=== PATIENT | female | born 1965 | race Caucasian/White ===

== ENCOUNTER 2017-07-27 13:05 | Emergency (ER) | payer BC, MEDICARE ==
[~2017-07-27] VITALS: Ht 154.9 cm; Wt 86.2 kg
[~2017-07-27 13:05] MED LIST: ALBU90OI INH; AMLO5 PO; ASCO250CH PO; ASCO500 PO; BUPR150ER PO; CHOL10002 PO; CYAN500 PO; CYCL10 PO; Clobetasol Emol15 GM TP; FISH1000 PO; HYDACE5 PO; HYDCHL12.5 PO; HYDR1TAB94 PO; LAVAP17G PO; LIDO5TP TOP; LISI20 PO; LORPSEER12 PO; MAGIC MOUTH WASH; OPANA ER10 MG PO; PARO10 PO; PAROEX473 ML; PENNSAID112 GM TP; Phentermine HCl30 MG PO; TETR250 PO; TOPI25 PO; TRIA80TC TOP; Toprol Xl50 MG PO; VENL150ER PO; VENL75ER PO; Ventolin Soln3 ML INH; [UNRECOGNIZED DRUG - OTHER]
[2017-07-27 13:54] LABS: BASOPHILS ABSOLUTE AUTO 0.05 K/mm3 (0.00-0.23); BASOPHILS PERCENT AUTO 1 % (0-2); EOSINOPHILS ABSOLUTE AUTO 0.19 K/mm3 (0.00-0.68); EOSINOPHILS PERCENT AUTO 2 % (0-6); Hematocrit 41.3 % (33.0-51.0); Hemoglobin 13.3 g/dL (11.5-16.0); IMMATURE GRAN ABSOLUTE AUTO 0.04 K/mm3 (0.00-0.10); IMMATURE GRAN PERCENT AUTO 0 % (0-1); LYMPHOCYTES ABSOLUTE AUTO 3.17 K/mm3 (0.84-5.20); LYMPHOCYTES PERCENT AUTO 30 % (21-46); MONOCYTES ABSOLUTE AUTO 0.52 K/mm3 (0.16-1.47); MONOCYTES PERCENT AUTO 5 % (4-13); Mean Corpuscular HGB 28.1 pg (26.0-34.0); Mean Corpuscular HGB Conc 32.2 g/dL (31.5-36.5); Mean Corpuscular Volume 87 fL (80-100); Mean Platelet Volume 10.1 fL (9.1-12.4); NEUTROPHILS PERCENT AUTO 62 % (41-73); Platelet Count 307 K/mm3 (150-400); RDW Coefficient Variation 13.4 % (11.7-14.2); RDW Standard Deviation 42.8 fL (35.1-46.3); Red Blood Cell Count 4.74 M/mm3 (3.80-5.20); White Blood Cell Count 10.47 K/mm3 (4.00-11.30)
[2017-07-27] MEDS ORDERED: METO50ER PO (13:59)
[2017-07-27] MEDS ORDERED: Zestril40 MG (14:00)
[2017-07-27] MEDS ORDERED: Omeprazole20 M1 (14:04)
[2017-07-27 14:11] LABS: Albumin, Blood 3.1 g/dL (3.4-5.0); Albumin/Globulin Ratio 0.7 (0.8-1.8); Bilirubin, Total 0.2 mg/dL (0.1-1.0); Bun/Creatinine Ratio 17.6 (12.0-20.0); Creatinine, Blood 1.08 mg/dL (0.40-1.00); Globulin, Blood 4.4 g/dL (2.2-4.0); Total Protein, Blood 7.5 g/dL (6.4-8.2)
[2017-07-27] MEDS ORDERED: Zofran8 MG PO (16:25)
== END 2017-07-27 17:26 | disposition home or self-care (01) ==
LOC: ER 13:05
PROVIDERS: Emergency Medicine
DX: R11.2 Nausea with vomiting, unspecified (principal); E86.0 Dehydration; Z88.8 Allergy status to other drugs, medicaments and biological substances; Z88.5 Allergy status to narcotic agent; Z88.1 Allergy status to other antibiotic agents; Z79.899 Other long term (current) drug therapy; E11.9 Type 2 diabetes mellitus without complications; I10 Essential (primary) hypertension; Z87.891 Personal history of nicotine dependence
CPT/HCPCS: 36415; 80053; 83690; 85025; 93005; 93010; 96361; 96374; 96375; 96376; 99284; J1170; J2405; J7030

== ENCOUNTER → 2018-07-02 | Outpatient (CLI) | payer BC, MEDICARE ==
[~2018-07-02] MED LIST changes: +METO50ER PO; +Omeprazole20 M1; +Zestril40 MG; +Zofran8 MG PO
[2018-07-02 17:28] LABS: U Opiates Screen DETECTED
[2018-07-02 17:29] LABS: U Amphetamine Screen Not Detected; U Barbituate Screen Not Detected; U Benzodiazapine Screen Not Detected; U Buprenorphine Screen Not Detected; U Cannabinoids Screen Not Detected; U Cocaine Screen Not Detected; U Methadone Screen Not Detected; U Methamphetamine Screen Not Detected; U Oxycodone Screen DETECTED; U Phencyclidine Screen Not Detected; U Propoxyphene Screen Not Detected
== END ==
LOC: LAB SHORT 08:47 → LAB 08:47
PROVIDERS: Internal Medicine
DX: M54.16 Radiculopathy, lumbar region (principal)
CPT/HCPCS: G0480

== ENCOUNTER 2019-02-05 17:56 | Emergency (ER) | payer BC, MEDICARE ==
[~2019-02-05] VITALS: Ht 154.9 cm; Wt 79.4 kg
[2019-02-05 18:40] LABS: Calcium, Ionized (POC) 1.21 mmol/L (1.10-1.46); Chloride (POC) 111 mmol/L (98-108); Creatinine (POC) 1.7 mg/dL (0.6-1.0); Glucose (ISTAT POC) 136 mg/dL (70-99); Hemoglobin (POC) 11.2 g/dL (12.0-16.0); Sodium (POC) 141 mmol/L (135-148); Total CO2 (POC) 18 mmol/L (21-32)
[2019-02-05 18:52] LABS: BASOPHILS ABSOLUTE AUTO 0.04 K/mm3 (0.00-0.23); BASOPHILS PERCENT AUTO 0 % (0-2); EOSINOPHILS ABSOLUTE AUTO 0.21 K/mm3 (0.00-0.68); EOSINOPHILS PERCENT AUTO 2 % (0-6); Hematocrit 36.3 % (33.0-51.0); Hemoglobin 11.5 g/dL (11.5-16.0); IMMATURE GRAN ABSOLUTE AUTO 0.04 K/mm3 (0.00-0.10); IMMATURE GRAN PERCENT AUTO 0 % (0-1); LYMPHOCYTES ABSOLUTE AUTO 3.67 K/mm3 (0.84-5.20); LYMPHOCYTES PERCENT AUTO 40 % (21-46); MONOCYTES ABSOLUTE AUTO 0.59 K/mm3 (0.16-1.47); MONOCYTES PERCENT AUTO 7 % (4-13); Mean Corpuscular HGB 28.8 pg (26.0-34.0); Mean Corpuscular HGB Conc 31.7 g/dL (31.5-36.5); Mean Corpuscular Volume 91 fL (80-100); Mean Platelet Volume 10.4 fL (9.1-12.4); NEUTROPHILS ABSOLUTE AUTO 4.57 K/mm3 (1.96-9.15); NEUTROPHILS PERCENT AUTO 50 % (41-73); Platelet Count 294 K/mm3 (150-400); RDW Coefficient Variation 13.4 % (11.7-14.2); RDW Standard Deviation 44.6 fL (35.1-46.3); Red Blood Cell Count 3.99 M/mm3 (3.80-5.20); White Blood Cell Count 9.12 K/mm3 (4.00-11.30)
[2019-02-05 19:07] LABS: Alanine Aminotransfer (ALT/SGP 28 U/L (12-78); Albumin, Blood 3.6 g/dL (3.4-5.0); Albumin/Globulin Ratio 0.9 (0.8-1.8); Alk Phos 67 U/L (50-136); Anion Gap 7 mmol/L (6-16); Aspartate Aminotrans (AST/SGOT 20 U/L (12-37); Bilirubin, Total <0.1 mg/dL (0.1-1.0); Blood Urea Nitrogen 30 mg/dL (8-24); Bun/Creatinine Ratio 20.1 (12.0-20.0); CO2, Blood 17 mmol/L (21-32); Calcium, Blood 9.3 mg/dL (8.5-10.1); Chloride, Blood 114 mmol/L (98-108); Creatinine, Blood 1.49 mg/dL (0.40-1.00); Globulin, Blood 3.9 g/dL (2.2-4.0); Glomerular Filtration Rate 38 (60-); Glucose, Blood 134 mg/dL (70-99); Potassium, Blood 5.1 mmol/L (3.5-5.5); Sodium, Blood 138 mmol/L (136-145); Total Protein, Blood 7.5 g/dL (6.4-8.2)
[2019-02-05 21:49] LABS: Source, Urine Clean Catch
[2019-02-05 21:53] LABS: Appearance, Urine Clear (Clear); Bilirubin, Urine Neg (Neg); Blood, Urine Neg (Neg); Color, Urine Yellow (P-Yellow); Glucose Qualitative, Urine Neg (Neg); Ketones, Urine Neg (Neg); Leukocyte Esterase, Urine Neg (Neg); Nitrite, Urine Neg (Neg); Protein, Urine Neg (Neg); Specific Gravity, Urine 1.025 (1.003-1.022); Urobilinogen, Urine NORM (Normal)
== END 2019-02-05 23:54 | disposition home or self-care (01) ==
LOC: ER 17:56
PROVIDERS: Emergency Medicine
DX: N17.9 Acute kidney failure, unspecified (principal); E86.0 Dehydration; R11.2 Nausea with vomiting, unspecified; E11.9 Type 2 diabetes mellitus without complications; I10 Essential (primary) hypertension; Z87.891 Personal history of nicotine dependence; Z91.048 Other nonmedicinal substance allergy status; Z88.1 Allergy status to other antibiotic agents; Z88.5 Allergy status to narcotic agent; Z88.8 Allergy status to other drugs, medicaments and biological substances; Z79.899 Other long term (current) drug therapy; Z79.891 Long term (current) use of opiate analgesic
CPT/HCPCS: 36415; 80047; 80053; 81003; 83690; 85014; 85025; 93005; 93010; 96360; 99284-25; J7030

== ENCOUNTER 2020-05-05 13:19 | Day surgery (SDC) | payer BC, MEDICARE ==
[~2020-05-05] VITALS: Ht 154.9 cm; Wt 70.3 kg
[~2020-05-05 13:19] MED LIST changes: +Dyazide 37.5-21 EACH PO; +MORP30ER PO; +PRAV20 PO
[2020-05-05] MEDS ORDERED: METFORMIN500 MG/51 (13:42)
[2020-05-05] MEDS ORDERED: AMLO5 (13:43)
[2020-05-05] MEDS ORDERED: CALCIUM CIT 311 EACH (13:44)
[2020-05-05] MEDS ORDERED: DOCU100 (13:44)
[2020-05-05] MEDS ORDERED: VENL25 (13:45)
== END 2020-05-05 15:53 | disposition home or self-care (01) ==
LOC: ORSCSDS 13:19
PROVIDERS: Internal Medicine Gastroenterology
PROC: 0DB78ZX Excision of Stomach, Pylorus, Via Natural or Artificial Opening Endoscopic, Diagnostic (ICD-10-PCS; principal; 2020-05-05 14:45)
PROC: 0D778ZZ Dilation of Stomach, Pylorus, Via Natural or Artificial Opening Endoscopic (ICD-10-PCS; principal; 2020-05-05 14:45)
PROC: 0DBP8ZX Excision of Rectum, Via Natural or Artificial Opening Endoscopic, Diagnostic (ICD-10-PCS; principal; 2020-05-05 14:45)
DX: K92.1 Melena (principal); R11.2 Nausea with vomiting, unspecified; R63.4 Abnormal weight loss; K31.89 Other diseases of stomach and duodenum; Z86.010 Personal history of colon polyps; K44.9 Diaphragmatic hernia without obstruction or gangrene; K31.1 Adult hypertrophic pyloric stenosis; K64.8 Other hemorrhoids; K64.4 Residual hemorrhoidal skin tags; J45.909 Unspecified asthma, uncomplicated; J44.9 Chronic obstructive pulmonary disease, unspecified; I10 Essential (primary) hypertension; E11.9 Type 2 diabetes mellitus without complications; E78.5 Hyperlipidemia, unspecified; E11.42 Type 2 diabetes mellitus with diabetic polyneuropathy; Z79.899 Other long term (current) drug therapy; Z87.891 Personal history of nicotine dependence
CPT/HCPCS: 82947; C1726; J2405; J2704; J7120

== ENCOUNTER → 2021-06-15 | Outpatient (CLI) | payer BC, MEDICARE ==
[~2021-06-15] MED LIST changes: +AMLO5; +CALCIUM CIT 311 EACH; +DOCU100; +METFORMIN500 MG/51; +VENL25
== END | disposition home or self-care (01) ==
LOC: LAB SHORT 19:04 → LAB 19:04
DX: B37.0 Candidal stomatitis (principal)
CPT/HCPCS: 87081

== ENCOUNTER → 2021-07-23 | Outpatient (CLI) | payer BC, MEDICARE | END | disposition home or self-care (01) | LOC: LAB 11:00 → LAB SHORT 11:00 | DX: K14.0 Glossitis (principal) | CPT/HCPCS: 87252; 87254 ==

== ENCOUNTER → 2022-01-10 | Outpatient (CLI) | payer BC, MEDICARE | END | disposition home or self-care (01) | LOC: LAB SHORT 15:40 → LAB 15:40 | DX: R30.0 Dysuria (principal) | CPT/HCPCS: 87086 ==

== ENCOUNTER → 2024-06-07 | Outpatient (CLI) | payer BC, MEDICARE ==
[2024-06-09 12:53] LABS: Stool Occult Bld Immuno 1 Negative (NEGATIVE)
== END | disposition home or self-care (01) ==
LOC: LAB SHORT 18:45
PROVIDERS: Student in an Organized Health Care Education/Training Program
DX: D64.9 Anemia, unspecified (principal)
CPT/HCPCS: 82274

== ENCOUNTER 2024-12-22 09:02 | Day surgery (SDC) | payer BC, MEDICARE ==
[~2024-12-22] VITALS: Ht 154.9 cm; Wt 71.3 kg
[2024-12-22] MEDS ORDERED: ALBU2.5V5 (09:38)
[2024-12-22] MEDS ORDERED: OXYCODONE HCL E20 M1 (09:39)
[2024-12-22 11:43] VITALS: BP 138/76
== END 2024-12-22 11:50 | disposition home or self-care (01) ==
LOC: ORSCSDS 09:02
PROVIDERS: Internal Medicine Gastroenterology
PROC: 0DB98ZX Excision of Duodenum, Via Natural or Artificial Opening Endoscopic, Diagnostic (ICD-10-PCS; principal; 2024-12-22 10:45)
PROC: 0DB68ZX Excision of Stomach, Via Natural or Artificial Opening Endoscopic, Diagnostic (ICD-10-PCS; principal; 2024-12-22 10:45)
PROC: 0DBM8ZX Excision of Descending Colon, Via Natural or Artificial Opening Endoscopic, Diagnostic (ICD-10-PCS; principal; 2024-12-22 10:45)
DX: R10.84 Generalized abdominal pain (principal); R19.4 Change in bowel habit; R13.10 Dysphagia, unspecified; Z86.0100 Personal history of colon polyps, unspecified; D12.4 Benign neoplasm of descending colon; K29.50 Unspecified chronic gastritis without bleeding; K31.9 Disease of stomach and duodenum, unspecified; K21.9 Gastro-esophageal reflux disease without esophagitis; Z79.899 Other long term (current) drug therapy
CPT/HCPCS: 82947; 88305; 88342; J2704; J7120